=== PATIENT | female | born 1955 | race Caucasian/White ===

== ENCOUNTER 2024-01-05 14:23 | Emergency (ER) | payer MEDICARE, BC ==
[2024-01-05 14:54] LABS: BASOPHILS ABSOLUTE AUTO 0.04 10^3/uL (0.00-0.10); BASOPHILS PERCENT AUTO 0.3 % (0.0-1.0); EOSINOPHILS ABSOLUTE AUTO 0.11 10^3/uL (0.10-0.30); EOSINOPHILS PERCENT AUTO 0.7 % (1.0-3.0); HEMATOCRIT 36.9 % (37.0-47.0); HEMOGLOBIN 11.8 g/dL (12.0-16.0); IMMATURE GRAN ABSOLUTE AUTO 0.13 10^3/uL (0.00-0.50); IMMATURE GRAN PERCENT AUTO 0.8 % (0.0-5.0); LYMPHOCYTES ABSOLUTE AUTO 2.15 10^3/uL (1.00-4.00); LYMPHOCYTES PERCENT AUTO 13.6 % (20.0-40.0); MEAN CORPUSCULAR HEMOGLOBIN 30.3 pg (27.0-31.0); MEAN CORPUSCULAR VOLUME 94.6 fL (82.0-92.0); MEAN PLATELET VOLUME 9.1 fL (7.4-10.4); MONOCYTES ABSOLUTE AUTO 1.38 10^3/uL (0.10-0.80); MONOCYTES PERCENT AUTO 8.8 % (2.0-8.0); NEUTROPHILS ABSOLUTE AUTO 11.95 10^3/uL (2.50-7.00); NEUTROPHILS PERCENT AUTO 75.8 % (50.0-70.0); PLATELET COUNT,PLT 375 10^3/uL (150-400); RED CELL DISTRIBUTION WIDTH 13.6 % (11.5-14.5); WHITE BLOOD CELL COUNT,WBC 15.76 10^3/uL (5.00-10.00)
[2024-01-05 15:07] LABS: ALBUMIN 3.64 g/dL (3.40-5.00); ANION GAP 11.6 mmol/L (5-15); BILIRUBIN TOTAL 1.7 mg/dL (0.2-1.0); CALCIUM 8.9 mg/dL (8.7-10.3); CARBON DIOXIDE,CO2 32.6 mmol/L (21.0-32.0); CREATININE 0.89 mg/dL (0.51-1.17); EST CRCL DRUG DOSING (CG) 51.52 mL/min; POTASSIUM,K 4.2 mmol/L (3.5-5.1); PROTEIN TOTAL,TP 7.6 g/dL (6.4-8.2)
== END 2024-01-05 17:25 | disposition home or self-care (01) ==
LOC: KA.ED 14:23
DX: S70.12XA Contusion of left thigh, initial encounter (principal); S30.0XXA Contusion of lower back and pelvis, initial encounter; I82.492 Acute embolism and thrombosis of other specified deep vein of left lower extremity; I10 Essential (primary) hypertension; E78.00 Pure hypercholesterolemia, unspecified; Z79.899 Other long term (current) drug therapy; Z88.8 Allergy status to other drugs, medicaments and biological substances; X50.0XXA Overexertion from strenuous movement or load, initial encounter
CPT/HCPCS: 80053; 82550; 85025; 85379; 99283

== ENCOUNTER 2024-01-22 11:46 | Emergency (ER) | payer MEDICARE, BC ==
[2024-01-22] MEDS: HYDROmorphone 1 MG/ML Syringe IVPUSH ONE ×2 (12:06→13:49)
[2024-01-22 12:16] LABS: BASOPHILS ABSOLUTE AUTO 0.03 10^3/uL (0.00-0.10); BASOPHILS PERCENT AUTO 0.2 % (0.0-1.0); EOSINOPHILS ABSOLUTE AUTO 0.02 10^3/uL (0.10-0.30); EOSINOPHILS PERCENT AUTO 0.1 % (1.0-3.0); HEMATOCRIT 36.2 % (37.0-47.0); HEMOGLOBIN 11.7 g/dL (12.0-16.0); IMMATURE GRAN ABSOLUTE AUTO 0.01 10^3/uL (0.00-0.50); IMMATURE GRAN PERCENT AUTO 0.1 % (0.0-5.0); LYMPHOCYTES PERCENT AUTO 7.5 % (20.0-40.0); MEAN CORPUSCULAR HEMOGLOBIN 29.9 pg (27.0-31.0); MEAN CORPUSCULAR HGB CONC 32.3 g/dL (32.0-36.0); MEAN CORPUSCULAR VOLUME 92.6 fL (82.0-92.0); MEAN PLATELET VOLUME 9.1 fL (7.4-10.4); MONOCYTES ABSOLUTE AUTO 0.96 10^3/uL (0.10-0.80); MONOCYTES PERCENT AUTO 7.2 % (2.0-8.0); NEUTROPHILS ABSOLUTE AUTO 11.37 10^3/uL (2.50-7.00); NEUTROPHILS PERCENT AUTO 84.9 % (50.0-70.0); PLATELET COUNT,PLT 417 10^3/uL (150-400); RED BLOOD CELL COUNT 3.91 10^6/uL (3.80-5.50); RED CELL DISTRIBUTION WIDTH 13.2 % (11.5-14.5); WHITE BLOOD CELL COUNT,WBC 13.39 10^3/uL (5.00-10.00)
[2024-01-22 12:32] LABS: ALBUMIN 3.08 g/dL (3.40-5.00); ANION GAP 14.4 mmol/L (5-15); BILIRUBIN TOTAL 1.1 mg/dL (0.2-1.0); C-REACTIVE PROTEIN 3.54 mg/dL (0.00-0.50); CALCIUM 8.9 mg/dL (8.7-10.3); CARBON DIOXIDE,CO2 28.4 mmol/L (21.0-32.0); CREATININE 1.67 mg/dL (0.51-1.17); EST CRCL DRUG DOSING (CG) 27.45 mL/min; POTASSIUM,K 3.8 mmol/L (3.5-5.1); PROTEIN TOTAL,TP 7.2 g/dL (6.4-8.2)
[2024-01-22] MEDS: Sodium Chloride 0.9% 1,000 ML IV ONE (12:32)
[2024-01-22 12:35] LABS: LACTIC ACID 1.4 mmol/L (0.4-2.0)
[2024-01-22] MEDS: Sodium Chloride 0.9% 1,000 ML ONE (12:35)
[2024-01-22 12:52] LABS: APPEARANCE,URINE CLEAR (CLEAR); BILIRUBIN,URINE NEGATIVE (NEGATIVE); COLOR,URINE YELLOW (YELLOW); GLUCOSE,URINE NEGATIVE (NEGATIVE); KETONES,URINE NEGATIVE (NEGATIVE); LEUKOCYTE ESTERASE,URINE TRACE (NEGATIVE); NITRITE,URINE NEGATIVE (NEGATIVE); OCCULT BLOOD,URINE TRACE-INTACT (NEGATIVE); PROTEIN,URINE NEGATIVE (NEGATIVE); UROBILINOGEN,URINE 0.2 E.U./dL (0.2-1.0)
[2024-01-22 12:59] LABS: BACTERIA,URINE RARE /HPF (NONE TO FEW); EPITHELIAL CELLS,URINE RARE /LPF
[2024-01-22] MEDS: Iopamidol 755 Mg/ML 100 ML Bottle IV ONE (13:20)
[2024-01-22] MEDS: Sodium Chloride 0.9% 50 ML IV SCH (13:20)
[2024-01-22] MEDS: Ketorolac 30 MG/ML SDV IVPUSH ONE (13:53)
[2024-01-22] MEDS: Ondansetron 4 MG Tab.DIS PO ONE (16:37)
[2024-01-22] MEDS: Acetaminophen/HYDROcodone 325-10 MG Tab PO ONE (16:38)
== END 2024-01-22 16:50 | disposition home or self-care (01) ==
LOC: KA.ED 11:46
DX: N13.2 Hydronephrosis with renal and ureteral calculous obstruction (principal); R59.1 Generalized enlarged lymph nodes; I10 Essential (primary) hypertension; E78.00 Pure hypercholesterolemia, unspecified; Z88.5 Allergy status to narcotic agent; Z91.041 Radiographic dye allergy status; Z79.899 Other long term (current) drug therapy
CPT/HCPCS: 36415; 74177; 80053; 81001; 83605; 83690; 85025; 86140; 96361; 96374; 96375; 96376; 99284; 99284-25; A9270-GY; J1170; J1885; J3490; J7030; Q9967